=== PATIENT | male | born 1930 | race Caucasian/White ===

== ENCOUNTER 2018-06-22 10:21 | Outpatient (CLI) | payer OTHER ==
[~2018-06-22 10:21] MED LIST: ASA-EC81 MG PO; ATACAND HCT 11 UDTA1; AZITHROMYCIN250 MG; LOSARTAN-HCTZ1 EACH PO; MONTELUKAST SOD10 MG; NORVASC5 MG PO; PANTOPRAZOLE SO40 MG PO; PRILOSEC20 MG PO; PROVENTIL2.5 MG/3 M; TAMS0.4C; URSODIOL500 MG PO; [UNRECOGNIZED DRUG - CODE]
== END 2018-06-22 10:29 | disposition home or self-care (01) ==
LOC: LAB 10:21
DX: D69.6 Thrombocytopenia, unspecified (principal); D68.8 Other specified coagulation defects

== ENCOUNTER 2018-09-09 13:59 | Outpatient (CLI) | payer OTHER | END 2018-09-09 14:08 | disposition home or self-care (01) | LOC: LAB 13:59 | DX: D69.3 Immune thrombocytopenic purpura (principal) ==

== ENCOUNTER 2018-09-16 11:51 | Emergency (ER) | payer OTHER ==
[~2018-09-16] VITALS: Ht 167.6 cm; Wt 93.0 kg
[2018-09-17] MEDS ORDERED: MEDROLPACK PO (14:13)
[2018-09-17] MEDS ORDERED: MUCINEX DM ER1 EACH PO (14:13)
[2018-09-17] MEDS ORDERED: LEVAQUIN750 MG PO (14:13)
[2018-09-17] MEDS ORDERED: XOPENEX0.63 MG/3 IH (14:13)
[2018-09-17] MEDS ORDERED: IPRAT-ALBUT 0.5-3 ML IH (14:13)
[2018-09-17] MEDS ORDERED: TESSALON PERLE100 M1 PO (14:13)
== END 2018-09-17 16:55 | disposition home or self-care (01) ==
LOC: ER 11:51
DX: J45.998 Other asthma (principal)

== ENCOUNTER 2018-09-23 15:49 | Inpatient (IN) | payer OTHER ==
[~2018-09-23] VITALS: Ht 167.6 cm; Wt 93.0 kg
[~2018-09-23 15:49] MED LIST changes: +IPRAT-ALBUT 0.5-3 ML IH; +LEVAQUIN750 MG PO; +MEDROLPACK PO; +MUCINEX DM ER1 EACH PO; +TESSALON PERLE100 M1 PO; +XOPENEX0.63 MG/3 IH
--- NOTE | 2018-09-23 16:30 | NUR ---
PTE REFIERE QUE TIENE ASMA DESDE HACE DOS SEMANAS, PTE REFIERE QUE LO DIERON DE KULWINDER DE AQUI EL VIENES 09/17/18.
--- NOTE | 2018-09-23 18:58 | NUR ---
MS SANDHU ORIENTA PTE SOBRE TX MEDICO EL CUAL REFIERE ENTENDER.SE LE EXTRAEN MUESTRAS BAJO MEDIDAS ASEPTICAS,SE CANALIZA Y SE ADMINISTRAN MEDICAMENTOS ÁNGEL ORDEN MEDICA.SE NOTIFICAN ABG A PERSONAL DE TERAPIA RESP.
--- NOTE | 2018-09-23 23:30 | NUR ---
PACIENTE ALERTA Y ORIENTADO POR TATO ESFERAS EN CAMA EN COMPANIA DE FAMILIAR. SE OBSERVA H/L PATENTE LES DE EDEMA Y ENROJECIMIENTO. PACIENTE SE OBSERVA CON BUEN PATRON RESPIRATORIO. PENDIENTE RE-EVALUACION MEDICA.
--- NOTE | 2018-09-24 00:15 | NUR ---
SE NOTIFICAN TERAPIAS Y PEAK FLOW PENDIENTE.
--- NOTE | 2018-09-24 07:42 | NUR ---
SE RECIBE PTE ALERTA Y ORIENTADO X3, COLOCADO EN CAMA CON BARANDAS ELEVADAS Y INTERCOM ACCESIBLE. PTE CON UN H/L PATENTE,LES DE EDEMA O ERITEMA. PTE CON CONSULTA CON .
[2018-10-01] MEDS ORDERED: IPRATROPIU0.2 MG/1 M IH (17:15)
[2018-10-01] MEDS ORDERED: CLOTRIMAZOLE10 MG PO (17:15)
[2018-10-01] MEDS ORDERED: LOSARTAN-HCTZ1 EACH PO (17:15)
[2018-10-01] MEDS ORDERED: Xopenex 1.25 MG/3 ML IH (17:15)
[2018-10-01] MEDS ORDERED: MONTELUKAST SOD10 MG PO (17:15)
[2018-10-01] MEDS ORDERED: ASA-EC81 MG PO (17:15)
[2018-10-01] MEDS ORDERED: TAMSULOSIN HCL0.4 MG PO (17:15)
[2018-10-01] MEDS ORDERED: AMLODIPINE BESY10 MG PO (17:15)
== END 2018-10-01 20:34 | disposition home or self-care (01) | DRG 202 ==
LOC: ER 15:49 → SEC-K 09-24 16:39 → SURH 09-24 16:39 → SEC-K 09-24 17:56 → SURH 09-26 11:23
PROVIDERS: ADMIT Internal Medicine
PROC: BW24ZZZ Computerized Tomography (CT Scan) of Chest and Abdomen (ICD-10-PCS; principal; 2018-09-24)
PROC: B54DZZZ Ultrasonography of Bilateral Lower Extremity Veins (ICD-10-PCS; 2018-09-24)
PROC: 3E0F7GC Introduction of Other Therapeutic Substance into Respiratory Tract, Via Natural or Artificial Opening (ICD-10-PCS; 2018-09-24)
PROC: 4A12X4Z Monitoring of Cardiac Electrical Activity, External Approach (ICD-10-PCS; 2018-09-24)
DX: J45.31 Mild persistent asthma with (acute) exacerbation (principal); J80 Acute respiratory distress syndrome; B37.1 Pulmonary candidiasis; J44.1 Chronic obstructive pulmonary disease with (acute) exacerbation; J44.0 Chronic obstructive pulmonary disease with (acute) lower respiratory infection; J98.11 Atelectasis; K80.42 Calculus of bile duct with acute cholecystitis without obstruction; J20.8 Acute bronchitis due to other specified organisms; K21.9 Gastro-esophageal reflux disease without esophagitis; M15.0 Primary generalized (osteo)arthritis; G47.33 Obstructive sleep apnea (adult) (pediatric); R91.1 Solitary pulmonary nodule; D72.828 Other elevated white blood cell count; E09.9 Drug or chemical induced diabetes mellitus without complications; Z79.4 Long term (current) use of insulin; T36.8X1A Poisoning by other systemic antibiotics, accidental (unintentional), initial encounter; T38.0X5A Adverse effect of glucocorticoids and synthetic analogues, initial encounter; N40.0 Benign prostatic hyperplasia without lower urinary tract symptoms

== ENCOUNTER 2018-12-04 12:54 | Emergency (ER) | payer OTHER ==
[~2018-12-04] VITALS: Ht 167.6 cm; Wt 93.0 kg
[~2018-12-04 12:54] MED LIST changes: +AMLODIPINE BESY10 MG PO; +CLOTRIMAZOLE10 MG PO; +IPRATROPIU0.2 MG/1 M IH; +MONTELUKAST SOD10 MG PO; +TAMSULOSIN HCL0.4 MG PO; +Xopenex 1.25 MG/3 ML IH
== END 2018-12-04 14:27 | disposition home or self-care (01) ==
LOC: ER 12:54
DX: M54.5 Low back pain (principal)